=== PATIENT | female | born 1965 | race Caucasian/White ===

== ENCOUNTER 2024-04-03 16:35 | Emergency (ER) | payer MEDICAID ==
[~2024-04-03] VITALS: Ht 165.1 cm; Wt 67.0 kg
[2024-04-03 16:42] VITALS: O2SAT 100
[2024-04-03] MEDS: TETANUS, DIPHTHERIA, PERTUSSIS VAC/PF 0.5ML (>10YR OLD) IM ONE (18:33)
[2024-04-03] MEDS: LIDOCAINE HCL/PF 1% 10 MG/ML 5ML VIAL INFIL ONE (18:33)
[2024-04-03] MEDS: BACITRACIN ZINC OINT UDPKT TOP ONE (18:34)
[2024-04-03 18:49] VITALS: BP 136/68; PULSE 84; RESP 18; TEMP 98
== END 2024-04-03 18:51 | disposition home or self-care (01) ==
LOC: ER 16:35
DX: S91.312A Laceration without foreign body, left foot, initial encounter (principal); E11.9 Type 2 diabetes mellitus without complications; I10 Essential (primary) hypertension; W18.39XA Other fall on same level, initial encounter; Y93.89 Activity, other specified; Y92.89 Other specified places as the place of occurrence of the external cause; Y99.8 Other external cause status
CPT/HCPCS: 99282; 12001; J3490; 90715